=== PATIENT | female | born 1985 | race Hispanic/Latino ===

== ENCOUNTER 2020-05-17 21:02 | Emergency (ER) | payer OTHER ==
[2020-05-17] MEDS ORDERED: DIPHENHYDRAMINE 50 MG/ML VIAL ONE (21:52)
[2020-05-17] MEDS ORDERED: predniSONE 20 MG TAB ONE (21:52)
[2020-05-17] MEDS ORDERED: FAMOTIDINE 20 MG/2 ML VIAL IV ONE (21:52)
[2020-05-17] MEDS ORDERED: NA CHLORIDE 0.9% 1,000 ML ONE (21:52)
[2020-05-17] MEDS ORDERED: METHYLPREDNISOLONE 125 MG INJ ONE (21:52)
[2020-05-17 22:17] LABS: Absolute Lymphocytes (CBC) 3.2 K/uL (0.7-4.9); Basophils % 0.6 % (0-1.3); Hematocrit 39.7 % (36.0-45.0); Lymphocytes % 36.5 % (15.3-44.8); MPV 9.5 fL (7.6-11.3); RBC Red Blood Cell Count 4.75 M/uL (3.86-4.86)
[2020-05-17 22:29] LABS: Albumin 4.1 g/dL (3.4-5.0); Bilirubin Total 0.2 mg/dL (0.2-1.0); Potassium 3.9 mmol/L (3.5-5.1); Protein, Total 7.6 g/dL (6.4-8.2)
--- NOTE | 2020-05-17 22:47 | ER ---
Nurse's Notes [facility] Name: Bekah Giraldo Age: 34 yrs Sex: Female : 1985 Arrival Date: 05/17/2020 Time: 21:07 Bed 13 Private MD: Diagnosis: Angioneurotic edema Presentation: 05/17 21:17 Chief complaint: Patient states: Son was playing with balloons, she started to have ll1 redness, itching, rash/hives to both hands, chest. neck and face. + SOB. Coronavirus screen: Client denies travel out of the [place] in the last 14 days. At this time, the client does not indicate any symptoms associated with coronavirus-19. Ebola Screen: Patient denies travel to an Ebola-affected area in the 21 days before illness onset. Onset: The symptoms/episode began/occurred acutely. Anaphylaxis evaluation, the patient reports or I have noted the following symptoms which indicate a significant risk of anaphylaxis: shortness of breath urticaria. Initial Sepsis Screen: Does the patient meet any 2 criteria? No. Patient's initial sepsis screen is negative. Risk Assessment: Do you want to hurt yourself or someone else? Patient reports no desire to harm self or others. Onset of symptoms was May 17, 2020. 21:17 Method Of Arrival: Ambulatory ll1 21:17 Acuity: ASHTYN 2 ll1 21:20 Initial Sepsis Screen: Does the patient have a suspected source of infection? No. vc Patient's initial sepsis screen is negative. ASSESSMENT RN: 21:30 LMP 05/10/2020 vc Historical: - Allergies: 21:19 Latex, Natural Rubber; ll1 - PSHx: 21:19 ; ll1 - Immunization history:: Flu vaccine is not up to date. - Social history:: Smoking status: Patient denies any tobacco usage or history of. Patient/guardian denies using alcohol, street drugs, tobacco products. - Family history:: not pertinent. Screenin:15 Abuse screen: Denies threats or abuse. Nutritional screening: No deficits noted. vc Tuberculosis screening: No symptoms or risk factors identified. Fall Risk None identified. Assessment: 21:15 General: Appears in no apparent distress. uncomfortable, Behavior is calm, cooperative, vc appropriate for age. Pain: Denies pain. Respiratory: Reports shortness of breath Airway is patent Respiratory effort is even, unlabored, Breath sounds are clear. 21:15 Neuro: Level of Consciousness is awake, alert, obeys commands, Oriented to person, vc place, time, situation, Appropriate for age. Cardiovascular: Capillary refill < 3 seconds Patient's skin is warm and dry. GI: No signs and/or symptoms were reported involving the gastrointestinal system. : No signs and/or symptoms were reported regarding the genitourinary system. Derm: Skin is intact, is healthy with good turgor, Rash noted that is itchy, urticaria, on right sternocleidomastoid and left sternocleidomastoid. 22:00 Reassessment: Patient appears in no apparent distress at this time. Patient and/or vc family updated on plan of care and expected duration. Pain level reassessed. Patient is alert, oriented x 3, equal unlabored respirations, skin warm/dry/pink. Patient states symptoms have improved. 23:07 Reassessment: Patient appears in no apparent distress at this time. Patient and/or vc family updated on plan of care and expected duration. Pain level reassessed. Discharge instructions given using translation machine, [id number]. Patient education on prescriptions and proper use of EPI Pen. Patient denies pain at this time. Patient states feeling better. Patient states symptoms have improved. Vital Signs: 21:17 BP 144 / 106; Pulse 82; Resp 18; Temp 98.3; Pulse Ox 96% on R/A; Pain 0/10; ll1 21:17 Weight 92.99 kg; Height 5 ft. 9 in. (175.26 cm); ll1 22:00 BP 158 / 110; Pulse 62; Resp 18; Pulse Ox 100% on R/A; vc 22:55 BP 123 / 103; Pulse 62; Resp 18; Pulse Ox 100% on R/A; vc 21:17 Body Mass Index 30.27 (92.99 kg, 175.26 cm) ll1 ED Course: 21:07 Patient arrived in ED. cl3 21:19 Triage completed. ll1 21:19 Arm band placed on Patient placed in an exam room, on a stretcher. ll1 21:20 Patient has correct armband on for positive identification. Pulse ox on. NIBP on. vc 21:28 Melodie Morejon, RN is Primary Nurse. vc 21:29 Zbigniew Rodriguez MD is Attending Physician. severo 23:10 No provider procedures requiring assistance completed. IV discontinued, intact, vc bleeding controlled, No redness/swelling at site. Pressure dressing applied. Administered Medications: 21:43 Drug: Benadryl 50 mg Route: IVP; Site: right antecubital; vc 23:00 Follow up: Response: No adverse reaction vc 21:45 Drug: predniSONE 60 mg Route: PO; vc 23:00 Follow up: Response: No adverse reaction vc 21:45 Drug: SOLU-Medrol 125 mg Route: IVP; Site: right antecubital; vc 23:00 Follow up: Response: No adverse reaction vc 21:47 Drug: NS 0.9% 1000 ml Route: IV; Rate: 1 bolus; Site: right antecubital; vc 21:47 Drug: Pepcid 40 mg Route: IVP; Site: right antecubital; vc 23:12 Follow up: Response: No adverse reaction vc Outcome: 22:46 Discharge ordered by . severo 23:11 Discharged to home ambulatory. vc 23:11 Condition: good 23:11 Discharge instructions given to patient, Instructed on discharge instructions, follow up and referral plans. medication usage, Demonstrated understanding of instructions, follow-up care, medications, Prescriptions given X 4. 23:11 Patient left the ED. vc Signatures: Zbigniew Rodriguez MD MD cha Lewis, Charde cl3 Melodie Morejon RN RN vc Lewis, Lynsay, RN RN ll1
--- NOTE | 2020-05-17 22:47 | EDPHYS ---
Physician Documentation [facility] Name: Bekah Giraldo Age: 34 yrs Sex: Female : 1985 Arrival Date: 05/17/2020 Time: 21:07 Bed 13 Private MD: ED Physician Zbigniew Rodriguez HPI: 05/17 21:42 This 34 yrs old Female presents to ER via Ambulatory with complaints of severo Allergic Reaction. 21:42 The patient presents with difficulty swallowing, diffuse swelling, hoarse voice, severo itching, nasal itching, redness of skin, swelling of the lips. Onset: The symptoms/episode began/occurred just prior to arrival. Associated signs and symptoms: The patient has no apparent associated signs or symptoms. Possible causes: The patient has no known obvious cause for the symptoms. At home the patient or guardian has treated the symptoms with nothing. Severity of symptoms: At their worst the symptoms were mild moderate in the emergency department the symptoms are unchanged. The patient has not experienced similar symptoms in the past. 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 - Social history:: Smoking status: Patient denies any tobacco usage or history of. Patient/guardian denies using alcohol, street drugs, tobacco products. - Family history:: not pertinent. ROS: 21:42 Constitutional: Negative for fever, chills, and weight loss, Eyes: Negative for injury, severo pain, redness, and discharge, Neck: Negative for injury, pain, and swelling, Cardiovascular: Negative for chest pain, palpitations, and edema, Respiratory: Negative for shortness of breath, cough, wheezing, and pleuritic chest pain, Abdomen/GI: Negative for abdominal pain, nausea, vomiting, diarrhea, and constipation. 21:42 Back: Negative for injury and pain, : Negative for injury, bleeding, discharge, and swelling, MS/Extremity: Negative for injury and deformity, Neuro: Negative for headache, weakness, numbness, tingling, and seizure, Psych: Negative for depression, anxiety, suicide ideation, homicidal ideation, and hallucinations, Allergy/Immunology: Negative for hives, rash, and allergies, Endocrine: Negative for neck swelling, polydipsia, polyuria, polyphagia, and marked weight changes, Hematologic/Lymphatic: Negative for swollen nodes, abnormal bleeding, and unusual bruising. 21:42 ENT: Positive for hoarseness, rhinorrhea, sinus congestion. 21:42 Skin: Positive for erythema, diffusely. Exam: 21:42 Constitutional: This is a well developed, well nourished patient who is awake, alert, severo and in no acute distress. Eyes: Pupils equal round and reactive to light, extra-ocular motions intact. Lids and lashes normal. Conjunctiva and sclera are non-icteric and not injected. Cornea within normal limits. Periorbital areas with no swelling, redness, or edema. Neck: Trachea midline, no thyromegaly or masses palpated, and no cervical lymphadenopathy. Supple, full range of motion without nuchal rigidity, or vertebral point tenderness. No Meningismus. Chest/axilla: Normal chest wall appearance and motion. Nontender with no deformity. No lesions are appreciated. Cardiovascular: Regular rate and rhythm with a normal S1 and S2. No gallops, murmurs, or rubs. Normal PMI, no JVD. No pulse deficits. Respiratory: Lungs have equal breath sounds bilaterally, clear to auscultation and percussion. No rales, rhonchi or wheezes noted. No increased work of breathing, no retractions or nasal flaring. Abdomen/GI: Soft, non-tender, with normal bowel sounds. No distension or tympany. No guarding or rebound. No evidence of tenderness throughout. 21:42 Head/face: Noted is rash, that is erythematous, swelling. Vital Signs: 21:17 BP 144 / 106; Pulse 82; Resp 18; Temp 98.3; Pulse Ox 96% on R/A; Pain 0/10; ll1 21:17 Weight 92.99 kg; Height 5 ft. 9 in. (175.26 cm); ll1 22:00 BP 158 / 110; Pulse 62; Resp 18; Pulse Ox 100% on R/A; vc 22:55 BP 123 / 103; Pulse 62; Resp 18; Pulse Ox 100% on R/A; vc 21:17 Body Mass Index 30.27 (92.99 kg, 175.26 cm) ll1 MDM: 21:29 Patient medically screened. [facility] 21:44 Differential diagnosis: anaphylaxis, angioedema, foreign body or airway obstruction severo urticaria, Vasovagal Reactions. Data reviewed: vital signs, nurses notes, lab test result(s), CBC, electrolytes. Data interpreted: Pulse oximetry: on room air is 96 %. Counseling: I had a detailed discussion with the patient and/or guardian regarding: the historical points, exam findings, and any diagnostic results supporting the discharge/admit diagnosis, the need for outpatient follow up, for definitive care, a family practitioner. Medication response: benadryl, pepcid, solumedrol good response. 22:47 ED course: improved, no dyspnea, no stridor, patient states much better. [facility] 05/17 21:35 Order name: CBC with Diff [facility] 05/17 21:35 Order name: Chem 7 [facility] 05/17 22:18 Order name: CBC with Automated Diff; Complete Time: 22:46 EDMS 05/17 22:30 Order name: Comprehensive Metabolic Panel; Complete Time: 22:46 EDMS Administered Medications: 21:43 Drug: Benadryl 50 mg Route: IVP; Site: right antecubital; vc 23:00 Follow up: Response: No adverse reaction vc 21:45 Drug: predniSONE 60 mg Route: PO; vc 23:00 Follow up: Response: No adverse reaction vc 21:45 Drug: SOLU-Medrol 125 mg Route: IVP; Site: right antecubital; vc 23:00 Follow up: Response: No adverse reaction vc 21:47 Drug: NS 0.9% 1000 ml Route: IV; Rate: 1 bolus; Site: right antecubital; vc 21:47 Drug: Pepcid 40 mg Route: IVP; Site: right antecubital; vc 23:12 Follow up: Response: No adverse reaction vc Disposition: 05/17/20 22:46 Discharged to Home. Impression: Angioneurotic edema. - Condition is Stable. - Discharge Instructions: Allergies, Adult, Angioedema, Angioedema, [id number]. - Prescriptions for Benadryl 25 mg Oral Capsule - take 1 capsule by ORAL route every 6 hours As needed; 30 tablet. Pepcid 20 mg Oral Tablet - take 1 tablet by ORAL route every 12 hours for 10 days; 20 tablet. Prednisone 20 mg Oral Tablet - take 2 tablet by ORAL route once daily for 5 days; 10 tablet. EpiPen 0.3 mg Injection auto- injector - inject 1 pen by INTRAMUSCULAR route as directed Inject into the outer portion of the thigh, through clothing if necessary. Indicated in the emergency treatment of allergic reactions; 1 box. - Medication Reconciliation Form, Thank You Letter, Antibiotic Education, Prescription Opioid Use form. - Follow up: Private Physician; When: 1 - 2 days; Reason: Recheck today's complaints, Continuance of care, Re-evaluation by your physician. - Problem is new. - Symptoms have improved. Signatures: Dispatcher [employer] EDMS Zbigniew Rodriguez MD MD cha Calcote, Vanessa RN RN vc Nnamdi Joseph RN RN ll1 Corrections: (The following items were deleted from the chart) 23:11 22:46 05/17/2020 22:46 Discharged to Home. Impression: Angioneurotic edema. Condition vc is Stable. Discharge Instructions: Allergies, Adult, Angioedema, Angioedema, [id number]. Prescriptions for Benadryl 25 mg Oral Capsule - take 1 capsule by ORAL route every 6 hours As needed; 30 tablet, Pepcid 20 mg Oral Tablet - take 1 tablet by ORAL route every 12 hours for 10 days; 20 tablet, Prednisone 20 mg Oral Tablet - take 2 tablet by ORAL route once daily for 5 days; 10 tablet, EpiPen 0.3 mg Injection auto-injector - inject 1 pen by INTRAMUSCULAR route as directed Inject into the outer portion of the thigh, through clothing if necessary. Indicated in the emergency treatment of allergic reactions; 1 box. and Forms are Medication Reconciliation Form, Thank You Letter, Antibiotic Education, Prescription Opioid Use. Follow up: Private Physician; When: 1 - 2 days; Reason: Recheck today's complaints, Continuance of care, Re-evaluation by your physician. Problem is new. Symptoms have improved. severo
[2020-05-17 23:21] VITALS: BP 123/103; TEMP 98.3; O2SAT 100
== END 2020-05-17 23:11 | disposition home or self-care (01) ==
LOC: ER 21:02
DX: T78.3XXA Angioneurotic edema, initial encounter (principal); Z91.040 Latex allergy status; Z91.048 Other nonmedicinal substance allergy status
CPT/HCPCS: 85025; 36415; 80053; 96375; 96374; 99283; J1200; J7512; J7030; J2930